=== PATIENT | female | born 1940 | race Caucasian/White ===

== ENCOUNTER 2016-05-01 05:54 | Day surgery (SDC) | payer MEDICARE ==
[~2016-05-01] VITALS: Ht 157.5 cm; Wt 82.0 kg
[2016-05-01] VITALS (10 sets, daily range): BP systolic 130–149; BP diastolic 53–77; PULSE 76–111; RESP 12–18; O2SAT 96–99
[~2016-05-01 05:54] MED LIST: ALBU8.5H2 INHALATION; AMLO5TAB2 PO; CYCL5TAB PO; ESTR1TAB24 PO; FUR20 PO; Lactated Ringer's 1,000 ML IV ONE; POTA10TA12 PO
[2016-05-01] MEDS ORDERED: Lidocaine PF 1% 30 mL Inj ONE (05:55)
[2016-05-01] MEDS ORDERED: Propofol 10,000 mCg/mL 20 mL Inj ONE (05:55)
[2016-05-01] MEDS ORDERED: Ondansetron 2 mg/mL 2 mL Inj ONE (05:55)
[2016-05-01] MEDS ORDERED: Dexamethasone 4 mg/mL Inj ONE (05:55)
[2016-05-01] MEDS ORDERED: fentaNYL-PF 50 mCg/mL 2 mL Inj ONE (05:55)
[2016-05-01] MEDS ORDERED: CeFAZolin Inj 2 GM in IV Premix 1 EACH IV ONE (06:00)
[2016-05-01] MEDS ORDERED: Bupivacaine Liposome 1.3% 20 mL Inj INFILTRATE ONE ×2 (06:00→07:55)
[2016-05-01] MEDS ORDERED: Vancomycin Inj 1,000 MG in IV Premix 1 EACH IV ONE (06:00)
--- NOTE | 2016-05-01 07:14 | PCM.HPANE ---
Patient Data Surgeon Admitting Provider: Attending Provider:Sanjay Drake MD Primary Care Physician:Eric Melgar MD Other Provider:[facility] Anesthesia Reason for Visit Left Knee Arthritis Ht/WT & BMI Height (Feet): 5 Height (Inches): 2 Weight (Kilograms): 82 Body Mass Index 33.00 Allergies Coded Allergies: No Known Allergies (Unverified , 05/27/15) Past Anesthesia History Anesthesia History: Denies:: Anesthesia Reactions, Fam Anesthesia Reaction, Fam Malignant Hypertherm, Malignant Hyperthermia Diabetes History Hx Diabetes?: No MRSA MRSA: No Medications Hypertension Medication: No Home Meds Incl Beta Scott: No Reported Medications Potassium Chloride ER 10 Meq [id number] Meq PO BID Ref 0 take with furosemide 04/26/16 Furosemide 20 Mg [id number] Mg PO DAILY PRN edema 30 Days Ref 0 04/26/16 Estradiol 1 Mg Tablet1 Mg PO DAILY Ref 0 04/26/16 Cyclobenzaprine 5 Mg Tablet5 Mg PO TID PRN Spasm 04/26/16 Amlodipine 5 Mg Tablet5 Mg PO DAILY Ref 0 04/26/16 Albuterol HFA (Proair HFA)8.5 Gm Hfa.aer.ad2 Puffs INHALATION Q4H PRN For Shortness of Breath #1 INHALER 04/26/16 Discontinued Reported Medications Tretinoin (Retin-A)15 Gm Gel..gram.15 Gm TP Q2DAY 05/27/15 Potassium Chloride ER 10 Meq [id number] Meq PO BID PRN when taking lasix Ref 0 TAKE WITH FOOD 05/27/15 Hydrocodone-Acetaminophen 5-325 mg 1 Each Tablet1 Tablet PO Q6H PRN For Pain Ref 0 05/27/15 Hydrocodone-Acetaminophen 5-325 mg 1 Each Tablet1 Tablet PO Q6H PRN For Pain Ref 0 05/27/15 Furosemide 20 Mg [id number] Mg PO DAILY PRN edema 30 Days Ref 0 05/27/15 Estradiol 1 Mg Tablet1 Mg PO DAILY Ref 0 05/27/15 Amlodipine 5 Mg Tablet5 Mg PO DAILY Ref 0 05/27/15 Albuterol HFA (Proair HFA)8.5 Gm Hfa.aer.ad2 Puffs INHALATION Q4H PRN For Shortness of Breath #1 INHALER 05/27/15 Last Time Dose Received Patient took amlodiine History History of ENT Problems?: No HEENT History: Positive for:: Cataracts (bilateral) Denies:: Hearing Problem Denture Type: Full- Upper Hx of Heart Problems?: Yes Cardiovascular History: Positive for:: Edema (lymphedema since uterine surgery - prn lasix) Hypertension Denies:: AICD Heart Murmur Irregular Heartbeat Pacemaker Peripheral Vascular Other History/Comments NO CP; Greater than 4 mets Hx of Respiratory Problem?: Yes Respiratory History: Positive for:: Cough (occasional) Use of Inhalers / NEBS (only when ill) Denies:: Asthma Emphysema Oxygen Administration Pneumonia Tuberculosis Use of C-PAP Machine Hx Neurologic Problems?: No Neurological History: Denies:: Alzheimer's Disease CVA Dementia Dizziness Headaches Multiple Sclerosis Parkinson's Disease Seizures Hx of GI Problems?: Yes Gastrointestinal History: Denies:: Cirrhosis Diverticulitis Gastroesphageal Reflux Gastrointestinal Bleeding Heartburn Hepatitis Hiatal Hernia Rectal Bleeding Other GI Pertinent History: hx of irritable bowel syndrome Hx of Problems?: No Genitourinary History: Denies:: Kidney Stones Urinary Tract Infection Female Hx: Denies:: Currently Problems with Breasts? Skin History: Denies:: History Skin Disorders? Pressure Ulcers Hx Musculoskeletal Problems?: Yes Musculoskeletal History: Positive for:: Back Injury (occasional low back pain ) Degenerative Joint Musculoskeletal Trauma (left knee current admission problem) Osteoarthritis Denies:: Joint Replacement Systemic Lupus Hx of Psycho/Social Problems?: No Psycho Social History: Denies:: Bipolar Disorder Suicide Attempt Hx Surgeries?: Yes (kiya, hyst, right TKR) Hx Any Other Health Problems?: Yes Other History: Positive for:: Cancer (uterine) Denies:: Thyroid Disease History Blood Transfusions: Denies:: Blood Transfusions Hx Diabetes: No Hx Alcohol Use: YesHx Substance Use: No Smoking Status: Never Smoker Have You Smoked inLast 12 mo: No Stop/Bang S-Snoring: Do You Snore Loudly: No T-Tired: feel tired, fatigued: No O-Obsered: Observed not breath: No P-Blood Pressure: treated: Yes B- Body Mass Index > 35 kg/m2: No A- Age over 50: Yes N- Neck Large Circumference: No G- Gender Male: No ДМИТРИЙ Total Score: 2 Risk Assessment Category Category 1A: Patient has history of documented sleep apnea, and HAS NOT received any narcotic, sedative or anesthesia administration during this stay. Category 1B: Patient has history of documented sleep apnea, and HAS received any narcotic , sedative or anesthesia administration during this stay Category 2: Patient has SUSPECTED Obstructive Sleep Apnea, and HAS received any narcotic , sedative or anesthesia administration during this stay. Category 3: Patient has SUSPECTED Obstructive Sleep Apnea and HAS NOT received narcotic, sedative or anesthesia administration during this stay. Category 4: Outpatient in Procedural Areas with known sleep apnea or who screen positive for High Risk via the STOP/BANG questionnaire. Exam Exam Vital Signs Vital Signs Date Time Temp Pulse Resp B/P Pulse Ox O2 Delivery O2 Flow Rate FiO2 05/01/16 06:23 35.7 76 17 147/72 98 Room Air General Appearance: Alert, Oriented X3 HEENT/AIRWAY: MP 2, Neck Movement (FROM) Lungs: Clear to Auscultation, Clear to Percussion Heart: Exam Unremarkable, Regular Rate/Rhythm Meds/Labs/Diagnostics Admission Meds Current Medications Lactated Ringer's 1,000 ml @ 120 mls/hr Q8H20M ONCE IV Last administered on 06:02; Start 05/01/16 at 05:00; Stop 05/01/16 at 13:19 Vancomycin/0.9 % Sod Chloride/ Premix (Vancomycin Inj/ IV Premix) 200 ml @ 133.333 mls/hr PREOP ONCE IV Last administered on 05/01/16 06:15; Start 05/01 at 06:00; Stop 05/01/16 at 07:29 Plan Impression Patient chart reviewed, patient interviewed and anesthestic plan with risks, benefits, and alternatives discussed, and informed consent obtained. NPO Status: [id number] 04/30/16 ASA Physical Status: ASA2 Mod Systemic Disease Anesthetic Plan: GA Bene/Risks/Altern/Consents: Yes HP Complete Prior to Induction: Yes Jeovany Rebollar MD May 01, 2016 07:06
[2016-05-01] MEDS ORDERED: Lactated Ringer's 1,000 ML IV SCH (07:42)
[2016-05-01] MEDS ORDERED: Lactated Ringer's 500 ML IV PRN (07:42)
[2016-05-01] MEDS ORDERED: HYDROmorphone 1 mg/mL Inj IVPUSH PRN (07:45)
[2016-05-01] MEDS ORDERED: Phenylephrine 10,000 mCg/mL Inj IVPUSH PRN (07:45)
[2016-05-01] MEDS ORDERED: MetoCLOpramide 5 mg/mL 2 mL Inj IVPUSH PRN (07:45)
[2016-05-01] MEDS ORDERED: Atropine 0.4 mg/mL Inj IVPUSH PRN (07:45)
[2016-05-01] MEDS ORDERED: Ondansetron 2 mg/mL 2 mL Inj IVPUSH PRN (07:45)
[2016-05-01] MEDS ORDERED: EPHEDrine Sulfate 50 mg/mL Inj IVPUSH PRN (07:45)
[2016-05-01] MEDS ORDERED: fentaNYL-PF 50 mCg/mL 2 mL Inj IVPUSH PRN (07:45)
[2016-05-01] MEDS ORDERED: Labetalol 5 mg/mL 4 mL Inj IV PRN (07:45)
[2016-05-01] MEDS ORDERED: Gentamicin 40 mg/mL 2 mL Inj IRRIGATION ONE (07:54)
[2016-05-01] MEDS ORDERED: Bupivacaine-MPF 0.25%/EPI 30 mL Inj INJ ONE (07:54)
--- NOTE | 2016-05-01 09:15 | PCM.ANEP1 ---
Post Anesthesia Phase 1 PACU Phase 1 Assessment Vital Signs Vital Signs Date Time Temp Pulse Resp B/P Pulse Ox O2 Delivery O2 Flow Rate FiO2 05/01/16 08:52 111 13 143/66 99 Simple Mask 8 05/01/16 06:23 35.7 76 17 147/72 98 Room Air Anesthetic Administered: GA Level of Alertness: Awake, talking TABOR's with Equal Strength: Yes Pain: No Nausea or Vomiting: No Oxygen Delivery: Simple Mask Lungs: Clear to Auscultation, Clear to Percussion Dermatome Level: Full Sensation Summary See EMR for PACU VS Jeovany Rebollar MD May 01, 2016 09:15
--- NOTE | 2016-05-01 09:15 | PCM.ANEP2 ---
Post Anesthesia Evaluation ASA/CMS Post Anesthesia VS in Patient's Normal Range?: Yes Resp Stable; Airway Patent?: Yes CV Function & Hydration Stable: Yes Mental Status Recovered?: Yes Pain control Satisfactory?: Yes N/V Control Satisfactory?: Yes Jeovany Rebollar MD May 01, 2016 09:15
--- NOTE | 2016-05-01 09:50 | DRSVH ---
PROCEDURE: X-RAY LEFT KNEE, ONE OR TWO VIEWS ([id number]) INDICATIONS: check alignment TECHNIQUE: 2 views of the knee acquired. COMPARISON: [facility], , XR KNEE ARTHRITIC SERIES LT, 02/16/2016, 12:59. [facility], , KNEE 1 OR 2VW (LT), 12/12/2013, 11:17. FINDINGS: Bones: Patient is status post left medial unicompartmental arthroplasty. Hardware components are in expected positions with near-anatomic alignment. Visualized bony structures are intact. Soft tissues: Overlying postoperative changes are noted including a joint effusion and joint space g as as well as subcutaneous gas and soft tissue swelling. A surgical drain is noted. IMPRESSION: 1. Expected post surgical changes status post medial unicompartmental arthroplasty. Dictated by: Munir Fernandez M.D. on 05/01/2016 at 9:42 Approved by: Munir Fernandez M.D. on 05/01/2016 at 9:48
[2016-05-01] MEDS ORDERED: oxyCODONE-Acetamin 5-325 mg Tablet PO ONE ×2 (10:03→12:27)
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
== END 2016-05-01 23:59 | disposition home or self-care (01) ==
LOC: SAS 05:54
PROVIDERS: ATTEND Orthopaedic Surgery
DX: M17.12 Unilateral primary osteoarthritis, left knee (principal); M25.562 Pain in left knee; I10 Essential (primary) hypertension; M54.5 Low back pain; K58.9 Irritable bowel syndrome, unspecified; I83.90 Asymptomatic varicose veins of unspecified lower extremity; Z79.51 Long term (current) use of inhaled steroids; Z79.52 Long term (current) use of systemic steroids
CPT/HCPCS: 27446; 73560; C1713; C1776; J0690; J1100; J1170; J1580; J2405; J3010; J3370; J7120